=== PATIENT | male | born 1935 | race Caucasian/White ===

== ENCOUNTER 2019-12-13 10:39 | Outpatient (CLI) | payer MEDICARE ==
[~2019-12-13 10:39] MED LIST: AMLO10TA8 PO; ASPI-515 PO; ASPI81TA45 PO; CLON0.1T22 PO; CLON1TAB11 PO; FLUT9.9S NAS; HYDR-3237 PO; HYDR-3240 PO; METAMUCIL; OXYC1TAB6 PO; SENN-92 PO
[2019-12-17] MEDS ORDERED: methylPREDNISolone SOD SUCC 125 MG/2 ML ONE (05:59)
[2019-12-17] MEDS ORDERED: BUPIVACAINE/PF 0.25% ONE (05:59)
[2019-12-17] MEDS ORDERED: BACITRACIN 50,000 UNIT ONE (06:00)
[2019-12-17] MEDS ORDERED: EPINEPHRINE 1 MG/ML, 1ML ONE (06:00)
== END 2019-12-13 23:59 | disposition home or self-care (01) ==
LOC: STAR 10:39
PROVIDERS: ATTEND Neurological Surgery
DX: Z01.812 Encounter for preprocedural laboratory examination (principal); Z20.828 Contact with and (suspected) exposure to other viral communicable diseases
CPT/HCPCS: 36415; 87635

== ENCOUNTER 2019-12-17 06:03 | Observation (INO) | payer MEDICARE ==
[~2019-12-17] VITALS: Ht 170.2 cm; Wt 57.3 kg
[2019-12-17] MEDS ORDERED: PROPOFOL 50 ML ONE (06:14)
[2019-12-17] MEDS ORDERED: FENTANYL PF 250 MCG/5ML ONE (06:14)
[2019-12-17] MEDS ORDERED: SIMV5TAB14 PO (06:24)
[2019-12-17] MEDS ORDERED: ASPI-515 PO (06:24)
[2019-12-17] MEDS ORDERED: ACETAMINOPHEN 500 MG TABLET PO ONE (06:30)
[2019-12-17] MEDS: PLEASE ENTER HEIGHT AND WEIGHT MC SCH ×3 (06:30→20:06)
[2019-12-17] MEDS ORDERED: GABAPENTIN 300 MG CAPSULE PO ONE (06:30)
[2019-12-17] MEDS ORDERED: CHLORHEXIDINE 15 ML UDC MM ONE (06:30)
[2019-12-17] MEDS ORDERED: LACTATED RINGERS 1,000 ML IV ONE (06:36)
[2019-12-17] MEDS ORDERED: PHENYLEPHRINE 10 MG/ML ONE (06:55)
[2019-12-17] MEDS ORDERED: OXYcodone 5 MG/5 ML ORAL.SOL UDC PO PRN (07:00)
[2019-12-17] MEDS ORDERED: hydrALAzine 20 MG/ML, 1ML IV PRN (07:00)
[2019-12-17] MEDS ORDERED: LABETALOL 5MG/ML, 20ML IV PRN (07:00)
[2019-12-17] MEDS ORDERED: morphine SULFATE 10 MG/ML, 1ML IVPush PRN (07:00)
[2019-12-17] MEDS ORDERED: MEPERIDINE/PF 25MG/0.5ML IVPush PRN (07:00)
[2019-12-17] MEDS ORDERED: HYDROmorphone 1 MG/ML, 1ML INJ IVPush PRN ×2 (07:00→08:30)
[2019-12-17] MEDS ORDERED: ONDANSETRON 2MG/ML, 2ML IVPush PRN ×2 (07:00→08:30)
[2019-12-17] MEDS ORDERED: FENTANYL PF 100 MCG/2ML IV PRN (07:00)
[2019-12-17] MEDS ORDERED: BUPIVACAINE/PF-EPI 0.5% 1:200K INFIL ONE (07:33)
[2019-12-17] MEDS ORDERED: BACITRACIN 50,000 UNIT IRRIG ONE (07:36)
[2019-12-17] MEDS ORDERED: SUGAMMADEX 200 MG/2 ML IVPush ONE (07:40)
[2019-12-17] MEDS ORDERED: DEXAMETHASONE 4 MG/ML, 1ML ONE (07:44)
[2019-12-17] MEDS ORDERED: PROPOFOL 10 MG/ML, 20ML ONE (07:44)
[2019-12-17] MEDS ORDERED: CEFAZOLIN 1,000 MG ONE (07:44)
[2019-12-17] MEDS ORDERED: ROCURONIUM 10MG/ML,5ML ONE (07:44)
[2019-12-17] MEDS ORDERED: GLYCOPYRROLATE 0.2MG/1ML, 5ML ONE (07:44)
[2019-12-17] MEDS ORDERED: NEOSTIGMINE 1 MG/ML, 10ML ONE (07:44)
[2019-12-17] MEDS ORDERED: MEPERIDINE/PF 100 MG/ML IM PRN (08:30)
[2019-12-17] MEDS ORDERED: PHARMACY MAY ADJ FOR RENAL FX MC PRN (08:30)
[2019-12-17] MEDS ORDERED: BISACODYL 10 MG SUPP PR PRN (08:30)
[2019-12-17] MEDS ORDERED: DIAZEPAM 5 MG TABLET PO PRN (08:30)
[2019-12-17] MEDS ORDERED: SENNA/DOCUSATE TABLET PO PRN (08:30)
[2019-12-17] MEDS ORDERED: PROMETHAZINE 25 MG/ML, 1ML IM PRN (08:30)
[2019-12-17] MEDS ORDERED: METHOCARBAMOL 1,000 MG in DEXTROSE 5% 100 ML IV ONE (08:30)
[2019-12-17] MEDS ORDERED: DIPHENHYDRAMINE 50 MG/ML, 1ML IVPush PRN (08:30)
[2019-12-17] MEDS ORDERED: MAGNESIUM HYDROXIDE 8%, 30ML UDC PO PRN (08:30)
[2019-12-17] MEDS: AMLODIPINE 2.5 MG TABLET PO SCH ×2 (09:00→20:05)
[2019-12-17] MEDS: SODIUM CHLORIDE FLUSH 10ML SYR IVF SCH ×2 (09:00→20:06)
[2019-12-17 09:35] VITALS: BP 114/65
[2019-12-17] MEDS: NS + 20MEQ KCL 1,000 ML IV SCH (12:11)
[2019-12-17 13:14] VITALS: BP 127/74
[2019-12-17] MEDS: CEFAZOLIN PMX 1GM/50ML 50 ML IVPB SCH ×2 (15:18→23:01)
[2019-12-17 18:54] VITALS: BP 148/86
[2019-12-17] MEDS: SIMVASTATIN 5 MG TABLET PO SCH (20:05)
[2019-12-17 23:30] VITALS: BP 149/79
[2019-12-18] MEDS: NS + 20MEQ KCL 1,000 ML IV SCH ×2 (01:20→10:35)
[2019-12-18 03:21] VITALS: BP 116/77
[2019-12-18] MEDS: PLEASE ENTER HEIGHT AND WEIGHT MC SCH (06:30)
[2019-12-18 07:13] VITALS: BP 114/66
[2019-12-18] MEDS: AMLODIPINE 2.5 MG TABLET PO SCH ×2 (08:41→23:43)
[2019-12-18] MEDS: SODIUM CHLORIDE FLUSH 10ML SYR IVF SCH ×2 (08:41→23:44)
[2019-12-18] MEDS ORDERED: DIAZEPAM 5 MG TABLET PO PRN (09:30)
[2019-12-18 13:08] VITALS: BP 150/73
[2019-12-18] MEDS: HYDROcodone/APAP 10/325 MG TABLET PO PRN ×2 (13:25→23:43)
[2019-12-18] MEDS: TIZANIDINE 4MG TABLET PO PRN ×2 (14:50→23:42)
[2019-12-18 20:07] VITALS: BP 156/78
[2019-12-18] MEDS: SIMVASTATIN 5 MG TABLET PO SCH (23:42)
[2019-12-19 00:16] VITALS: BP 163/75
[2019-12-19] MEDS: NS + 20MEQ KCL 1,000 ML IV SCH (04:00)
[2019-12-19 06:43] VITALS: BP 165/68
[2019-12-19] MEDS: AMLODIPINE 2.5 MG TABLET PO SCH (09:01)
[2019-12-19] MEDS: HYDROcodone/APAP 10/325 MG TABLET PO PRN (09:01)
[2019-12-19] MEDS: SODIUM CHLORIDE FLUSH 10ML SYR IVF SCH (09:02)
== END 2019-12-19 10:43 | disposition home or self-care (01) ==
LOC: OUT 06:03 → ORIP 08:17 → 4NE 09:26 → DCLOUNGE 12-19 10:37
PROVIDERS: ADMIT Neurological Surgery; ATTEND Neurological Surgery
DX: M48.04 Spinal stenosis, thoracic region (principal); G95.20 Unspecified cord compression; M10.9 Gout, unspecified; I10 Essential (primary) hypertension; E78.5 Hyperlipidemia, unspecified; Z79.899 Other long term (current) drug therapy; Z87.891 Personal history of nicotine dependence
CPT/HCPCS: 63046; 63048; 72072; 95938; 95941; 96361; 96365; 96366; 97161; 97165; G0378; J0171; J0690; J1100; J2370; J2704; J2710; J2800; J2930; J3010; J3480; J3490; J7120

== ENCOUNTER 2021-01-15 13:53 | Inpatient (IN) | payer MEDICARE ==
[~2021-01-15] VITALS: Ht 157.5 cm; Wt 53.8 kg
[~2021-01-15 13:53] MED LIST changes: +AMLO-211 PO; -AMLO10TA8 PO; -ASPI-515 PO; +ASPI-963 PO; +HYDR-2214 PO; -HYDR-3240 PO; +SIMV5TAB14 PO
--- NOTE | 2021-01-15 14:00 | NUR ---
late entry for 1400: [facility], +troponin, +covid. report received from [facility]. ekg taken on arrival by edt, pt placed on all monitors. pt a&o, resps even and unlabored, nsr on monitoring analyst with no ectopy. pt denies chest pain. call light in reach. awaiting further orders at this time.
[2021-01-15] MEDS ORDERED: SODIUM CHLORIDE FLUSH 10ML SYR IVF ONE (14:30)
[2021-01-15] MEDS ORDERED: SIMV5TAB14 PO (15:09)
[2021-01-15] MEDS ORDERED: HYDR-2214 PO (15:09)
--- NOTE | 2021-01-15 15:13 | NUR ---
pt resting on gurney, pt a&o, resps even and unlabored, NSR rate 70-90s on plate sensitizer with no ectopy. pt denies pain. med rec complete. md aware of troponin, awaiting admit orders.
--- NOTE | 2021-01-15 15:31 | NUR ---
MD clay has consulted cardiology for pt, was advised to start heparin gtt. it is uncertain whether pt received lovenox at previous hospital, no documentation in pt's paperwork. per MD Clay, heparin protocol to be started, dosing per pharmacy based on initial xa and pt height/weight. pt has received aspirin at previous hospital today, declines to order additional aspirin.
--- NOTE | 2021-01-15 15:50 | NUR ---
pt is a cardiac telemetry hold. hospital bed requested from housekeeping.
[2021-01-15] MEDS ORDERED: HEPARIN 25,000 UNITS/250ML PMX 250 ML IV PRN ×2 (16:00→16:30)
[2021-01-15] MEDS ORDERED: HEPARIN 5,000 UNITS/ML, 1ML IV ONE ×2 (16:00→16:30)
[2021-01-15] MEDS ORDERED: HEPARIN 5,000 UNITS/ML, 1ML IV PRN ×2 (16:00→16:30)
[2021-01-15] MEDS ORDERED: ACETAMINOPHEN 325 MG TABLET PO PRN (16:30)
[2021-01-15] MEDS ORDERED: GUAIFENESIN/DM 200-20MG, 10ML UDC PO PRN (16:30)
[2021-01-15] MEDS ORDERED: morphine SULFATE 10 MG/ML, 1ML IVPush PRN (16:30)
[2021-01-15] MEDS ORDERED: ONDANSETRON ODT 4 MG PO PRN (16:30)
[2021-01-15] MEDS ORDERED: ENALAPRILAT 1.25 MG/ML, 2ML IVPush PRN (16:30)
[2021-01-15] MEDS ORDERED: ONDANSETRON 2MG/ML, 2ML IVPush PRN (16:30)
--- NOTE | 2021-01-15 16:45 | NUR ---
pt weighed on scale, pharmacy updated with height and weight. heparin protocol adjusted by pharmacist nate. nate notified this RN received in report that pt got 50mg lovenox today [employer] but there is no record of this in pt's paperwork from prior hospital, unknown admin time. heparin xa is 0.5, per pharmacist KARLIE Valdovinos to hold heparin bolus and begin heparin drip at 700U/hr, MD Andrews aware and ok'd heparin dosing per pharmacy recommendations. report given to KARLIE Luo at bedside, pt a&o, resps even and unlabored, nsr on monitor technician with no ectopy noted.
[2021-01-15] MEDS ORDERED: HEPARIN 25,000 UNITS/250ML PMX 250 ML ONE (16:52)
--- NOTE | 2021-01-15 16:57 | NUR ---
REPORT FROM MARILIN ZIEGLER. PER MARILIN PT NOT TO RECEIVE HEPARIN BOLUS R/T ANTI XA, START 700 UNIT/HR HEPARIN DRIP.
[2021-01-15] MEDS: METOPROLOL TARTRATE 25 MG TAB PO SCH (18:00)
--- NOTE | 2021-01-15 18:28 | NUR ---
REPORT TO NARINDER ZIEGLER. PT RESTING ON [employer] W/ CALL LIGHT IN REACH AND SIDE RAILS UPX2. RESP EVEN AND UNLABORED, GUY.
[2021-01-15] MEDS ORDERED: SIMVASTATIN 40 MG TABLET PO SCH (21:00)
[2021-01-15] MEDS: ATORVASTATIN 80 MG TABLET PO SCH (22:05)
[2021-01-16] MEDS: HYDROcodone/APAP 5/325 TABLET PO PRN ×3 (01:33→20:16)
[2021-01-16 02:00] VITALS: BP 99/63
[2021-01-16 03:46] LABS: ANION GAP 6 mmol/L (5-15); CHLORIDE 109 mmol/L (98-107); CREATININE 1.67 mg/dL (0.7-1.3)
[2021-01-16 05:49] LABS: BASOPHILS % (AUTO) 0 % (0-1); EOSINOPHILS % (AUTO) 0 % (1-7); LYMPHOCYTES % (AUTO) 11 % (22-44); MEAN CORPUSCULAR HEMOGLOBIN 30.3 pg (27.5-34.5); MEAN PLATELET VOLUME 8.1 fL (7.4-10.4); MONOCYTES % (AUTO) 6 % (2-9); NEUTROPHILS % (AUTO) 83 % (42-75); PLATELET COUNT 150 x10^3/uL (130-400); RED CELL DISTRIBUTION WIDTH 17.6 % (9.4-14.8)
[2021-01-16] MEDS: METOPROLOL TARTRATE 25 MG TAB PO SCH ×2 (06:00→18:29)
[2021-01-16 07:28] VITALS: BP 101/62
[2021-01-16 13:17] VITALS: BP 96/60
[2021-01-16 18:42] VITALS: BP 99/63
[2021-01-16 19:47] VITALS: BP 108/73
[2021-01-16] MEDS: ATORVASTATIN 80 MG TABLET PO SCH (20:16)
[2021-01-17 02:25] VITALS: BP 90/52
[2021-01-17 05:44] VITALS: BP 94/57
[2021-01-17 08:09] VITALS: BP 108/62
[2021-01-17] MEDS: ASPIRIN 81 MG TABLET EC PO SCH (09:00)
[2021-01-17] MEDS: METOPROLOL TARTRATE 25 MG TAB PO SCH ×2 (09:00→17:54)
[2021-01-17] MEDS: CLOPIDOGREL 75 MG TABLET PO SCH (09:04)
[2021-01-17] MEDS: HYDROcodone/APAP 5/325 TABLET PO PRN ×2 (10:23→20:47)
[2021-01-17 13:07] VITALS: BP 87/52
[2021-01-17 13:09] VITALS: BP 85/49
[2021-01-17 20:00] VITALS: BP 98/61
[2021-01-17] MEDS: MELATONIN 5 MG TABLET PO PRN (20:32)
[2021-01-17] MEDS: ATORVASTATIN 80 MG TABLET PO SCH (20:32)
[2021-01-18 02:00] VITALS: BP 114/60
[2021-01-18] MEDS: HYDROcodone/APAP 5/325 TABLET PO PRN ×3 (03:10→23:44)
[2021-01-18] MEDS: ASPIRIN 81 MG TABLET EC PO SCH (05:34)
[2021-01-18] MEDS: METOPROLOL TARTRATE 25 MG TAB PO SCH ×2 (05:34→18:22)
[2021-01-18 06:18] LABS: BASOPHILS % (AUTO) 0 % (0-1); EOSINOPHILS % (AUTO) 0 % (1-7); LYMPHOCYTES % (AUTO) 19 % (22-44); MEAN CORPUSCULAR HEMOGLOBIN 30.2 pg (27.5-34.5); MEAN CORPUSCULAR HGB CONC 33.6 g/dL (33.2-36.2); MEAN PLATELET VOLUME 8.3 fL (7.4-10.4); MONOCYTES % (AUTO) 6 % (2-9); NEUTROPHILS % (AUTO) 75 % (42-75); PLATELET COUNT 151 x10^3/uL (130-400); RED BLOOD COUNT 3.57 x10^6/uL (4.38-5.82)
[2021-01-18 06:30] LABS: CHLORIDE 106 mmol/L (98-107)
[2021-01-18 06:37] LABS: ANION GAP 8 mmol/L (5-15); CALCIUM 8.7 mg/dL (8.5-10.1); CHOL/HDL RATIO 3.2; CHOLESTEROL, TOTAL 92 mg/dL (140-239); CREATININE 2.13 mg/dL (0.7-1.3); HDL CHOL % 32 % (26-37); HDL CHOLESTEROL (DIRECT) 29 mg/dL (40-60); LDL CHOLESTEROL,CALCULATED 32 mg/dL (54-169); LDL/HDL RATIO 1.1 (0.5-3.0); TRIGLYCERIDES 156 mg/dL (50-200); VLDL CHOLESTEROL 31 mg/dL (0-25)
[2021-01-18] MEDS: CLOPIDOGREL 75 MG TABLET PO SCH (09:20)
[2021-01-18 12:11] VITALS: BP 85/49
[2021-01-18 19:55] VITALS: BP 99/51
[2021-01-18] MEDS: MELATONIN 5 MG TABLET PO PRN (20:47)
[2021-01-18] MEDS: ATORVASTATIN 80 MG TABLET PO SCH (20:47)
[2021-01-19 01:23] VITALS: BP 96/48
[2021-01-19 05:51] VITALS: BP 115/70
[2021-01-19] MEDS: METOPROLOL TARTRATE 25 MG TAB PO SCH ×2 (05:51→18:53)
[2021-01-19 06:08] LABS: ANION GAP 7 mmol/L (5-15); CALCIUM 8.7 mg/dL (8.5-10.1); CHLORIDE 105 mmol/L (98-107)
[2021-01-19 06:09] LABS: CREATININE 2.38 mg/dL (0.7-1.3)
[2021-01-19 07:41] LABS: BASOPHILS % (AUTO) 0 % (0-1); EOSINOPHILS % (AUTO) 0 % (1-7); LYMPHOCYTES % (AUTO) 9 % (22-44); MEAN CORPUSCULAR HEMOGLOBIN 29.6 pg (27.5-34.5); MEAN CORPUSCULAR HGB CONC 33.2 g/dL (33.2-36.2); MEAN PLATELET VOLUME 8.5 fL (7.4-10.4); MONOCYTES % (AUTO) 6 % (2-9); NEUTROPHILS % (AUTO) 85 % (42-75); PLATELET COUNT 174 x10^3/uL (130-400); RED BLOOD COUNT 3.83 x10^6/uL (4.38-5.82); RED CELL DISTRIBUTION WIDTH 17.1 % (9.4-14.8)
[2021-01-19 07:47] VITALS: BP 116/70
[2021-01-19] MEDS ORDERED: SODIUM CHLORIDE 0.9%, 250ML IVBOLUS ONE (09:00)
[2021-01-19] MEDS: CLOPIDOGREL 75 MG TABLET PO SCH (09:02)
[2021-01-19] MEDS: HYDROcodone/APAP 5/325 TABLET PO PRN ×2 (09:02→18:55)
[2021-01-19] MEDS: TAMSULOSIN 0.4 MG CAP.ER.24H PO SCH (10:30)
[2021-01-19] MEDS: SODIUM CHLORIDE 0.9% 1,000 ML IV SCH (11:10)
[2021-01-19 13:41] VITALS: BP 92/50
[2021-01-19 19:35] VITALS: BP 116/54
[2021-01-19] MEDS: MELATONIN 5 MG TABLET PO PRN (20:15)
[2021-01-19] MEDS: ATORVASTATIN 80 MG TABLET PO SCH (20:15)
[2021-01-20 01:30] VITALS: BP 112/51
[2021-01-20] MEDS: HYDROcodone/APAP 5/325 TABLET PO PRN ×3 (06:00→20:57)
[2021-01-20] MEDS: METOPROLOL TARTRATE 25 MG TAB PO SCH ×2 (06:00→19:01)
[2021-01-20 06:05] LABS: ANION GAP 6 mmol/L (5-15); CALCIUM 8.6 mg/dL (8.5-10.1); CHLORIDE 109 mmol/L (98-107)
[2021-01-20 06:07] LABS: CREATININE 1.71 mg/dL (0.7-1.3)
[2021-01-20 07:29] VITALS: BP 103/64
[2021-01-20] MEDS: CLOPIDOGREL 75 MG TABLET PO SCH (07:43)
[2021-01-20] MEDS: TAMSULOSIN 0.4 MG CAP.ER.24H PO SCH (07:43)
[2021-01-20] MEDS: SODIUM CHLORIDE 0.9% 1,000 ML IV SCH (08:00)
[2021-01-20 14:25] VITALS: BP 112/54
[2021-01-20 20:23] VITALS: BP 122/66
[2021-01-20] MEDS: ATORVASTATIN 80 MG TABLET PO SCH (20:57)
[2021-01-20] MEDS: MELATONIN 5 MG TABLET PO PRN (20:58)
[2021-01-21 00:07] VITALS: BP 98/58
[2021-01-21] MEDS: HYDROcodone/APAP 5/325 TABLET PO PRN ×2 (02:20→21:40)
[2021-01-21 05:20] VITALS: BP 102/61
[2021-01-21] MEDS: METOPROLOL TARTRATE 25 MG TAB PO SCH ×2 (05:20→18:15)
[2021-01-21 07:58] VITALS: BP 112/65
[2021-01-21] MEDS: CLOPIDOGREL 75 MG TABLET PO SCH (09:11)
[2021-01-21] MEDS: TAMSULOSIN 0.4 MG CAP.ER.24H PO SCH (09:11)
[2021-01-21 13:07] VITALS: BP 94/57
[2021-01-21 13:09] VITALS: BP 95/58
[2021-01-21] MEDS: METHOCARBAMOL 500 MG TABLET PO PRN (19:11)
[2021-01-21 19:50] VITALS: BP 109/58
[2021-01-21] MEDS: ATORVASTATIN 80 MG TABLET PO SCH (21:40)
[2021-01-21] MEDS: MELATONIN 5 MG TABLET PO PRN (21:40)
[2021-01-22 00:42] VITALS: BP 101/62
[2021-01-22 05:52] VITALS: BP 96/61
[2021-01-22] MEDS: METOPROLOL TARTRATE 25 MG TAB PO SCH ×3 (05:52→18:25)
[2021-01-22 07:38] VITALS: BP 110/67
[2021-01-22 07:41] LABS: ANION GAP 5 mmol/L (5-15); CALCIUM 8.8 mg/dL (8.5-10.1); CHLORIDE 104 mmol/L (98-107); CREATININE 1.37 mg/dL (0.7-1.3)
[2021-01-22] MEDS: CLOPIDOGREL 75 MG TABLET PO SCH (08:15)
[2021-01-22] MEDS: TAMSULOSIN 0.4 MG CAP.ER.24H PO SCH (08:16)
[2021-01-22] MEDS: HYDROcodone/APAP 5/325 TABLET PO PRN ×2 (14:28→18:25)
[2021-01-22 18:16] VITALS: BP 104/56
[2021-01-22] MEDS: ATORVASTATIN 80 MG TABLET PO SCH (20:59)
[2021-01-23 00:04] VITALS: BP 102/62
[2021-01-23] MEDS: HYDROcodone/APAP 5/325 TABLET PO PRN ×3 (00:10→14:38)
[2021-01-23] MEDS: METOPROLOL TARTRATE 25 MG TAB PO SCH ×2 (05:54→17:20)
[2021-01-23] MEDS: CLOPIDOGREL 75 MG TABLET PO SCH (08:57)
[2021-01-23] MEDS: MAGNESIUM HYDROXIDE 8%, 30ML UDC PO SCH (08:57)
[2021-01-23] MEDS: METHOCARBAMOL 500 MG TABLET PO PRN (08:57)
[2021-01-23] MEDS: TAMSULOSIN 0.4 MG CAP.ER.24H PO SCH (08:57)
[2021-01-23 09:01] VITALS: BP 97/56
[2021-01-23 13:28] VITALS: BP 101/55
[2021-01-23] MEDS: POLYETHYLENE GLYCOL 17 GM PACKET PO SCH (17:19)
[2021-01-23 17:21] VITALS: BP 107/63
[2021-01-23 21:07] VITALS: BP 108/62
[2021-01-23] MEDS: ATORVASTATIN 80 MG TABLET PO SCH (21:09)
[2021-01-24] VITALS: BP 113/66
[2021-01-24] MEDS: HYDROcodone/APAP 5/325 TABLET PO PRN ×4 (00:02→21:03)
[2021-01-24 05:47] VITALS: BP 120/64
[2021-01-24] MEDS: METOPROLOL TARTRATE 25 MG TAB PO SCH ×2 (05:53→17:59)
[2021-01-24] MEDS: POLYETHYLENE GLYCOL 17 GM PACKET PO SCH (09:00)
[2021-01-24] MEDS: MAGNESIUM HYDROXIDE 8%, 30ML UDC PO SCH (09:00)
[2021-01-24 09:14] VITALS: BP 116/65
[2021-01-24] MEDS: CLOPIDOGREL 75 MG TABLET PO SCH (11:07)
[2021-01-24] MEDS: TAMSULOSIN 0.4 MG CAP.ER.24H PO SCH (11:07)
[2021-01-24 14:05] VITALS: BP 108/61
[2021-01-24 18:00] VITALS: BP 107/58
[2021-01-24] MEDS: ATORVASTATIN 80 MG TABLET PO SCH (21:02)
[2021-01-25 02:03] VITALS: BP 102/61
[2021-01-25 06:27] VITALS: BP 124/74
[2021-01-25] MEDS: METOPROLOL TARTRATE 25 MG TAB PO SCH ×2 (06:30→17:08)
[2021-01-25 07:56] LABS: CHLORIDE 99 mmol/L (98-107)
[2021-01-25 08:10] LABS: ANION GAP 8 mmol/L (5-15); CALCIUM 8.6 mg/dL (8.5-10.1)
[2021-01-25] MEDS: POLYETHYLENE GLYCOL 17 GM PACKET PO SCH (09:00)
[2021-01-25] MEDS: MAGNESIUM HYDROXIDE 8%, 30ML UDC PO SCH (09:00)
[2021-01-25] MEDS: CLOPIDOGREL 75 MG TABLET PO SCH (09:33)
[2021-01-25] MEDS: TAMSULOSIN 0.4 MG CAP.ER.24H PO SCH (09:34)
[2021-01-25 13:09] VITALS: BP 104/66
[2021-01-25 17:07] VITALS: BP 118/67
[2021-01-25] MEDS: HYDROcodone/APAP 5/325 TABLET PO PRN ×2 (17:08→21:18)
[2021-01-25 18:59] VITALS: BP 117/79
[2021-01-25 19:08] VITALS: BP 97/54
[2021-01-25] MEDS: ATORVASTATIN 80 MG TABLET PO SCH (21:18)
[2021-01-26 00:37] VITALS: BP 94/54
[2021-01-26 06:10] VITALS: BP 109/61
[2021-01-26] MEDS: METOPROLOL TARTRATE 25 MG TAB PO SCH (06:12)
[2021-01-26] MEDS: MAGNESIUM HYDROXIDE 8%, 30ML UDC PO SCH (09:00)
[2021-01-26] MEDS: TAMSULOSIN 0.4 MG CAP.ER.24H PO SCH (09:34)
[2021-01-26] MEDS: CLOPIDOGREL 75 MG TABLET PO SCH (09:34)
[2021-01-26] MEDS: POLYETHYLENE GLYCOL 17 GM PACKET PO SCH (09:34)
[2021-01-26] MEDS: HYDROcodone/APAP 5/325 TABLET PO PRN ×2 (09:38→14:28)
[2021-01-26] MEDS ORDERED: METO25TA35 PO (13:24)
[2021-01-26] MEDS ORDERED: TAMS-11 PO (13:24)
[2021-01-26] MEDS ORDERED: HYDR-2214 PO (13:24)
[2021-01-26] MEDS ORDERED: CLOP75TA PO (13:24)
[2021-01-26] MEDS ORDERED: MAGN400O7 PO (13:24)
[2021-01-26] MEDS ORDERED: ATOR-2 PO (13:24)
[2021-01-26 14:24] VITALS: BP 108/57
== END 2021-01-26 15:35 | DRG 177 ==
LOC: ED 15:49 → EDIP 16:00 → 5SO 18:54 → 3N 01-20 19:12
PROVIDERS: ADMIT Internal Medicine; ATTEND Hospitalist
DX: U07.1 COVID-19 (principal); I21.A1 Myocardial infarction type 2; E43 Unspecified severe protein-calorie malnutrition; N17.9 Acute kidney failure, unspecified; D63.8 Anemia in other chronic diseases classified elsewhere; E78.5 Hyperlipidemia, unspecified; G89.29 Other chronic pain; I12.9 Hypertensive chronic kidney disease with stage 1 through stage 4 chronic kidney disease, or unspecified chronic kidney disease; I70.0 Atherosclerosis of aorta; N18.30 Chronic kidney disease, stage 3 unspecified; N32.0 Bladder-neck obstruction; N40.1 Benign prostatic hyperplasia with lower urinary tract symptoms; R33.8 Other retention of urine; Z66 Do not resuscitate; R25.1 Tremor, unspecified; I95.9 Hypotension, unspecified; M48.00 Spinal stenosis, site unspecified; M54.9 Dorsalgia, unspecified; Z86.73 Personal history of transient ischemic attack (TIA), and cerebral infarction without residual deficits; Z87.891 Personal history of nicotine dependence; Z68.21 Body mass index [BMI] 21.0-21.9, adult; Z79.899 Other long term (current) drug therapy
CPT/HCPCS: 36415; 71045; 80048; 80061; 84484; 85025; 85520; 93005; 93308; 93321; 93325; 93356; 99291; G0378; J7030; J7050